=== PATIENT | female | born 1935 | race Caucasian/White ===

== ENCOUNTER 2019-08-18 16:40 | Emergency (ER) | payer MEDICARE, OTHER ==
[~2019-08-18] VITALS: Ht 162.6 cm; Wt 90.0 kg
[2019-08-18] MEDS ORDERED: cephalexin 250mg capsule PO ONE (19:40)
[2019-08-18 20:12] LABS: BASOPHILS # (AUTO) 0.1 X10'3 (0-0.2); BASOPHILS % (AUTO) 0.5 % (0-1); EOSINOPHILS # (AUTO) 0.1 X10'3 (0-0.9); EOSINOPHILS % (AUTO) 0.5 % (0-6); HEMATOCRIT 36.5 % (35.0-45.0); HEMOGLOBIN 11.8 g/dl (12.0-16.0); LYMPHOCYTES # (AUTO) 1.3 X10'3 (1.1-4.8); LYMPHOCYTES % (AUTO) 10.8 % (21-51); MEAN CORPUSCULAR HEMOGLOBIN 26.7 PG (27.0-31.0); MEAN CORPUSCULAR HGB CONC 32.3 g/dL (33.0-36.5); MEAN CORPUSCULAR VOLUME 82.6 FL (78-98); MEAN PLATELET VOLUME 8.2 FL (7.4-10.4); MONOCYTES # (AUTO) 0.6 X10'3 (0-0.9); MONOCYTES % (AUTO) 5.4 % (2-12); NEUTROPHILS # (AUTO) 9.7 X10'3 (1.8-7.7); NEUTROPHILS % (AUTO) 82.8 % (42-75); PLATELET COUNT 338 X10'3 (140-440); RED BLOOD COUNT 4.42 X10'6 (4.20-5.60); RED CELL DISTRIBUTION WIDTH 14.4 % (11.5-14.5); WHITE BLOOD COUNT 11.7 X10'3 (4.5-11.0)
[2019-08-18 20:13] LABS: CLARITY,URINE CLOUDY (Clear)
[2019-08-18 20:14] LABS: ALANINE AMINOTRANSFERASE 14 U/L (12-78); ALBUMIN 3.5 G/DL (3.4-5.0); ALBUMIN/GLOBULIN RATIO 0.9 (1.1-1.5); ALKALINE PHOSPHATASE 100 IU/L (46-116); ANION GAP 8 (8-16); ASPARTATE AMINO TRANSFERASE 10 U/L (10-37); BILIRUBIN,TOTAL 0.4 MG/DL (0.1-1.0); BLOOD UREA NITROGEN 24 MG/DL (7-18); BUN/CREATININE RATIO 13.6 (6.6-38.0); CALCIUM 9.6 MG/DL (8.5-10.1); CHLORIDE 102 MMOL/L (99-107); CREATININE 1.76 MG/DL (0.40-0.90); GLUCOSE 110 MG/DL (70-104); POTASSIUM 4.6 MMOL/L (3.5-5.1); SODIUM 138 MMOL/L (135-145); TOTAL CARBON DIOXIDE 28.3 MMOL/L (24-32); TOTAL PROTEIN 7.6 G/DL (6.4-8.2); eGFR 28 ML/MIN
[2019-08-18 20:23] LABS: COLOR,URINE RED (Yellow); UA COLLECTION TYPE FOLEY CATH
--- NOTE | 2019-08-18 20:23 | NUR ---
60 ml syringe cath tip filled with sterile water and vigorously flushed the bladder with this repeatedly removing tiny clots the biggest 0.5cm and flushed until clear. Gave pt water to drink, informed pt will monitor, hoping it stays clear.
[2019-08-18 20:24] LABS: RBC,URINE TNTC /HPF (0-2)
[2019-08-18 20:25] LABS: BACTERIA,URINE NONE SEEN /HPF (Neg); SQUAMOUS EPITHELIAL CELL,UR NONE SEEN /LPF (FEW)
[2019-08-18] MEDS ORDERED: normal saline 1000ML IV soln IVB ONE (20:40)
--- NOTE | 2019-08-18 21:57 | NUR ---
SARA JAMES, HOME HEALTH NURSE,
--- NOTE | 2019-08-18 22:07 | NUR ---
The urine has remained clear.
[2019-08-18] MEDS ORDERED: CEPH500C5 PO (22:10)
--- NOTE | 2019-08-18 22:17 | NUR ---
Roselyn is Mily' sister, not Mily [facility] RN Clarification
--- NOTE | 2019-08-18 22:17 | NUR ---
White catheter removed. Pt encouraged to drink plenty of fluids. To return if she gets bladder retention again.
[2019-08-18 22:24] VITALS: BP 137/68
--- NOTE | 2019-08-19 12:46 | NUR ---
PT CALLED STATING SHE DID NOT RECIEVE AN RX FOR HER DX UTI. STATED THAT SHE WAS TOLD IT WOULD BE CALLED INTO [facility] [address], WHICH WAS NOT CALLED IN. VERIFIED RX WITH DR GEORGES AND KEFLEX 500MG PO BID X5 DAYS #10 WAS CALLED INTO [facility] [address] REQUESTED BY PT.
== END 2019-08-18 22:27 | disposition home or self-care (01) ==
LOC: ER 16:40
DX: R33.9 Retention of urine, unspecified (principal); R31.9 Hematuria, unspecified; I10 Essential (primary) hypertension; Z88.8 Allergy status to other drugs, medicaments and biological substances
CPT/HCPCS: 36415; 51701; 80053; 81001; 85025; 87088; 99283; J7030; 87077; 87186

== ENCOUNTER 2020-07-01 06:09 | Day surgery (SDC) | payer MEDICARE, OTHER ==
[2020-07-01] VITALS (8 sets, daily range): BP systolic 103–133; BP diastolic 43–81
[~2020-07-01] VITALS: Ht 162.6 cm; Wt 94.0 kg
[~2020-07-01 06:09] MED LIST: CEPH500C5 PO
[2020-07-01] MEDS ORDERED: albumin 25% 100mL bottle x 1 IV PRN (06:30)
[2020-07-01] MEDS ORDERED: normal saline 1000ml 1,000 ML IV PRN (06:30)
[2020-07-01] MEDS ORDERED: HYDR25TA4 PO (07:13)
[2020-07-01] MEDS ORDERED: OMEP-50 PO (07:13)
== END 2020-07-01 10:30 | disposition home or self-care (01) ==
LOC: SSTAY O 06:09
PROVIDERS: ATTEND Radiology Diagnostic Radiology
DX: R18.8 Other ascites (principal); I10 Essential (primary) hypertension; C56.9 Malignant neoplasm of unspecified ovary; Z88.8 Allergy status to other drugs, medicaments and biological substances; Z79.899 Other long term (current) drug therapy
CPT/HCPCS: 49083; P9047